=== PATIENT | female | born 1935 | race Caucasian/White ===

== ENCOUNTER → 2016-05-30 | Outpatient (CLI) | payer MEDICARE ==
--- NOTE | 2016-05-30 11:53 | REPMRS ---
Patient History The patient states she has not had a clinical breast exam in over a year. Patient is postmenopausal and has history of skin cancer at age 78. No known family history of cancer. Benign FNA biopsy. Digital Woman Screen Mammo: May 30, 2016 - Exam #: [id number] Bilateral CC and MLO view(s) were taken. Technologist: Daly Wheeler, Technologist Prior study comparison: May 29, 2015, digital woman screen mammo performed at [facility]. May 15, 2014, digital woman screen mammo performed at [facility]. FINDINGS: There are scattered fibroglandular densities. There has been no change in the appearance of the mammogram from the prior studies. There is a mild amount of residual fibroglandular tissue which is fairly symmetric. There is no interval development of dominant mass, architectural distortion, or clustered microcalcification suggestive of malignancy. ASSESSMENT: BI-RADS/ACR category 1 mammogram. Negative. Recommendation Routine screening mammogram in 1 year (for women over age 40). This mammogram was interpreted with the aid of an FDA-approved computer-aided dectection system. Electronically Signed By: Kai Chavez MD 05/30/16 [id number]
== END ==
LOC: M WHC 09:52
DX: Z12.31 Encounter for screening mammogram for malignant neoplasm of breast (principal)

== ENCOUNTER → 2016-11-26 | Outpatient (REF) | payer MEDICARE | LOC: M LAB REF 16:43 | PROVIDERS: ATTEND Nurse Practitioner Adult Health | DX: N39.0 Urinary tract infection, site not specified (principal) ==

== ENCOUNTER → 2016-12-12 | Outpatient (REF) | payer MEDICARE | LOC: M LAB REF 17:08 | PROVIDERS: ATTEND Nurse Practitioner Adult Health | DX: N76.6 Ulceration of vulva (principal) ==

== ENCOUNTER → 2017-07-16 | Outpatient (CLI) | payer MEDICARE | LOC: M WHC 12:42 | DX: Z12.31 Encounter for screening mammogram for malignant neoplasm of breast (principal); R92.1 Mammographic calcification found on diagnostic imaging of breast | CPT/HCPCS: 77067 ==

== ENCOUNTER → 2018-01-05 | Outpatient (CLI) | payer MEDICARE | LOC: M WHC 08:00 | DX: M85.80 Other specified disorders of bone density and structure, unspecified site (principal); Z78.0 Asymptomatic menopausal state | CPT/HCPCS: 77080 ==

== ENCOUNTER → 2018-07-19 | Outpatient (CLI) | payer MEDICARE ==
--- NOTE | 2018-07-19 09:19 | REPMRS ---
Patient History The patient states she has not had a clinical breast exam in over a year. 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 No known family history of cancer. Benign FNA biopsy. No Hormone Replacement Therapy 3D TOMOSYNTHESIS WAS PERFORMED. Digital Woman Screen Mammo: July 19, 2018 - Exam #: [id number] Bilateral CC and MLO view(s) were taken. Technologist: Daly Wheeler, Technologist Prior study comparison: July 16, 2017, digital woman screen mammo performed at [facility]. May 30, 2016, digital woman screen mammo performed at [facility]. FINDINGS: There are scattered fibroglandular densities. There has been no change in the appearance of the mammogram from the prior studies. There is a mild amount of residual fibroglandular tissue which is fairly symmetric. There is no interval development of dominant mass, architectural distortion, or clustered microcalcification suggestive of malignancy. Assessment: BI-RADS/ACR category 1 mammogram. Negative Mammogram. Recommendation Routine screening mammogram in 1 year (for women over age 40). This mammogram was interpreted with the aid of an FDA-approved computer-aided dectection system. Electronically Signed By: Kai Chavez MD 07/19/18 0918
== END ==
LOC: M WHC 07:43
PROVIDERS: ATTEND Internal Medicine
DX: Z12.31 Encounter for screening mammogram for malignant neoplasm of breast (principal); Z78.0 Asymptomatic menopausal state; Z85.828 Personal history of other malignant neoplasm of skin

== ENCOUNTER 2018-07-25 06:00 | Emergency (ER) | payer MEDICARE ==
[2018-07-25] MEDS ORDERED: PANT20TA2 (06:17)
[2018-07-25] MEDS ORDERED: CITR500T PO (06:17)
[2018-07-25] MEDS ORDERED: METF500T13 (06:17)
[2018-07-25] MEDS ORDERED: LOSA50TA88 (06:17)
[2018-07-25] MEDS ORDERED: SIMV40TA2 (06:17)
[2018-07-25] MEDS ORDERED: TAMSULOSIN 0.4 MG CAP PO ONE (06:30)
[2018-07-25] MEDS ORDERED: NS 1,000 ML IV ONE (06:30)
[2018-07-25] MEDS ORDERED: MORPHINE 4 MG/ML 1ML VIAL/SYRINGE (J2270) IV ONE (06:45)
--- NOTE | 2018-07-25 07:30 | REPVR ---
EXAM: CT Abdomen and Pelvis Without Contrast EXAM DATE/TIME: 07/25/2018 6:51 AM CLINICAL HISTORY: 82 years old, female; Abdominal pain; Generalized; Additional info: R colic TECHNIQUE: Imaging protocol: Axial computed tomography images of the abdomen and pelvis without contrast. Coronal and sagittal reformatted images were created and reviewed. Radiation optimization: All CT scans at this facility use at least one of these dose optimization techniques: automated exposure control; mA and/or kV adjustment per patient size (includes targeted exams where dose is matched to clinical indication); or iterative reconstruction. COMPARISON: No relevant prior studies available. FINDINGS: Lungs: There is mild nonspecific geographic ground glass opacity in the visualized lung bases. ABDOMEN: Liver: There are no focal liver lesions present. Gallbladder and bile ducts: The gallbladder is distended.There is no significant gallbladder wall thickening or adjacent inflammatory changes. There is no biliary ductal dilation. Pancreas: There is diffuse, benign fatty infiltration of the pancreas. Spleen: The spleen is normal. Adrenals: The adrenal glands are diffusely thickened but without discrete nodules. Kidneys and ureters: There is mild right hydronephrosis. There is a 5 x 5 x 8 m stone in the proximal right ureter. The right mid and distal ureter are not significantly dilated. There is right perinephric and periureteral stranding. The left ureter appears normal with no stones or hydronephrosis. There are nonobstructing 3-4 mm stones in the left kidney. Mild diffuse thinning of the bilateral renal parenchyma is seen, indicating atrophy. Stomach and bowel: Moderate diverticulosis is present in the colon, most prominent in the sigmoid and descending colon. There is no dilation or thickening of the colon. The small bowel appears unremarkable. Appendix: A normal appendix is identified. PELVIS: Bladder: The bladder is unremarkable. No stones identified. Reproductive: There are multiple calcifications in the uterus, consistent with degenerated benign fibroid tumors. ABDOMEN and PELVIS: Intraperitoneal space: There is no evidence of free intraperitoneal or pelvic fluid. There is no free intraperitoneal air. Bones/joints: Degenerative endplate changes are seen at multiple levels in the visualized spine. No suspicious osseous lesions. No acute fractures or dislocations. Soft tissues: Unremarkable. Vasculature: Atherosclerotic changes are present in the abdominal aorta and the iliac arteries. Lymph nodes: Normal. No enlarged lymph nodes. IMPRESSION: 1. Right-sided hydronephrosis and right perinephric and periureteral stranding with an obstructing 5 x 5 x 8 mm stone in the proximal right ureter. 2. Diverticulosis but no evidence of acute diverticulitis. Electronically signed by: Brina Jorge On 07/25/2018 07:29:41 AM
[2018-07-25 07:40] LABS: BASO % 0.3 % (0.0-1.0); EOS # 0.3 10^3/uL (0.0-0.50); EOS % 4.5 % (0.0-3.0); HEMATOCRIT 42.6 % (36.0-47.0); HEMOGLOBIN 14.2 g/dl (12.0-15.5); LYMPH # 1.1 10^3/uL (1.5-4.5); LYMPH % 16.7 % (24.0-44.0); MEAN CORPUSCULAR HEMOGLOBIN 31.4 pg (27.0-33.0); MEAN CORPUSCULAR HGB CONC 33.3 g/dl (32.0-36.5); MEAN CORPUSCULAR VOLUME 94.2 fl (80.0-96.0); MONO # 0.4 10^3/uL (0.0-0.8); MONO % 6.3 % (0.0-5.0); NEUTROPHILS # 4.8 10^3/uL (1.8-7.7); NEUTROPHILS % 71.7 % (36.0-66.0); PLATELET COUNT, AUTOMATED 135 10^3/uL (150-450); RED BLOOD COUNT 4.52 10^6/uL (4.00-5.40); WHITE BLOOD COUNT 6.7 10^3/uL (4.0-10.0)
[2018-07-25 08:10] LABS: ALBUMIN 3.6 GM/DL (3.2-5.2); BILIRUBIN,DIRECT 0.2 MG/DL (0.0-0.2); BILIRUBIN,TOTAL 0.8 MG/DL (0.2-1.0); CALCIUM LEVEL 9.1 MG/DL (8.8-10.2); CREATININE FOR GFR 1.06 MG/DL (0.55-1.30); GLOMERULAR FILTRATION RATE 53.1 (>32); TOTAL PROTEIN 7.3 GM/DL (6.4-8.2)
[2018-07-25] MEDS ORDERED: KETOROLAC 30 MG/ML VIAL (J1885) IV ONE (08:15)
[2018-07-25] MEDS ORDERED: KEFL500C17 PO (09:04)
[2018-07-25] MEDS ORDERED: NORC1TAB7 PO (09:04)
[2018-07-25] MEDS ORDERED: ONDA4TAB6 PO (09:04)
[2018-07-25 09:12] VITALS: BP 146/77
== END 2018-07-25 09:24 | disposition home or self-care (01) ==
LOC: M ED 06:00
DX: N20.1 Calculus of ureter (principal); N39.0 Urinary tract infection, site not specified; E11.9 Type 2 diabetes mellitus without complications; I10 Essential (primary) hypertension; E78.5 Hyperlipidemia, unspecified; K21.9 Gastro-esophageal reflux disease without esophagitis; Z79.899 Other long term (current) drug therapy; Z79.84 Long term (current) use of oral hypoglycemic drugs; Z91.013 Allergy to seafood; Z91.041 Radiographic dye allergy status

== ENCOUNTER → 2018-08-10 | Outpatient (CLI) | payer MEDICARE ==
[~2018-08-10] MED LIST: ASPI81TA85 PO; CITR500T PO; KEFL500C17 PO; LOSA50TA88 PO; METF500T13 PO; NITR100C2 PO; NORC1TAB7 PO; ONDA4TAB6 PO; PANT20TA2 PO; SIMV40TA2 PO; XARE15TA PO
--- NOTE | 2018-08-10 11:48 | REP ---
RIGHT LOWER EXTREMITY DUPLEX DOPPLER VENOUS ULTRASOUND: Real-time compression and duplex Doppler interrogation of right lower extremity deep vein system is performed. The right common femoral and superficial femoral veins are fully compressible with transducer pressure and demonstrate normal spontaneous and phasic flow without evidence of deep vein thrombosis. However, there is thrombosis diffusely of the right popliteal vein. IMPRESSION: Deep vein thrombosis right popliteal vein. Electronically Signed by Kai Chavez MD 08/11/2018 09:14 A
== END ==
LOC: M RAD 10:37
PROVIDERS: ATTEND Podiatrist
DX: I82.4Z1 Acute embolism and thrombosis of unspecified deep veins of right distal lower extremity (principal); R60.0 Localized edema

== ENCOUNTER → 2018-09-21 | Outpatient (CLI) | payer MEDICARE ==
[~2018-09-21] MED LIST changes: -SIMV40TA2 PO; +SIMV40TA20 PO
--- NOTE | 2018-09-21 09:28 | REP ---
Clinical: Hydronephrosis. Technique: Real time myers scale ultrasound examination using the curved array transducer. Findings: Bilateral kidneys are normal in reniform shape and demonstrate cortical thinning with increased central sinus fat suggesting chronic medical renal disease. No hydronephrosis, nephrolithiasis, or renal mass lesion identified. No perinephric fluid collection. Right kidney measures 11.8 x 5.8 x 3.8 cm and includes 11 mm lower pole simple cyst. Left kidney measures 10.9 x 4.2 x 4.6 cm. Impression: Findings to suggest chronic medical renal disease. A single 11 mm right lower pole simple renal cyst. Electronically Signed by Noman Steele MD 09/21/2018 09:19 A
== END ==
LOC: M RAD 08:21
PROVIDERS: ATTEND Urology
DX: N13.30 Unspecified hydronephrosis (principal); N28.1 Cyst of kidney, acquired

== ENCOUNTER → 2018-11-02 | Outpatient (REF) | payer MEDICARE ==
[~2018-11-02] MED LIST changes: +SIMV40TA2 PO; -SIMV40TA20 PO
== END ==
LOC: M LAB REF 17:13
PROVIDERS: ATTEND Internal Medicine
DX: R31.9 Hematuria, unspecified (principal)

== ENCOUNTER 2019-05-08 10:51 | Emergency (ER) | payer MEDICARE ==
[~2019-05-08] VITALS: Ht 152.4 cm; Wt 75.5 kg
[~2019-05-08 10:51] MED LIST changes: -SIMV40TA2 PO; +SIMV40TA20 PO
[2019-05-08 11:48] LABS: BASO % 0.6 % (0.0-1.0); EOS # 0.4 10^3/uL (0.0-0.5); EOS % 5.5 % (0.0-3.0); HEMATOCRIT 41.3 % (36.0-47.0); HEMOGLOBIN 13.4 g/dl (12.0-15.5); LYMPH # 1.4 10^3/uL (1.5-5.0); LYMPH % 21.2 % (24.0-44.0); MEAN CORPUSCULAR HEMOGLOBIN 30.9 pg (27.0-33.0); MEAN CORPUSCULAR HGB CONC 32.4 g/dl (32.0-36.5); MEAN CORPUSCULAR VOLUME 95.2 fl (80.0-96.0); MONO # 0.3 10^3/uL (0.0-0.8); MONO % 5.3 % (0.0-5.0); NEUTROPHILS # 4.3 10^3/uL (1.5-8.5); NEUTROPHILS % 66.9 % (36.0-66.0); PLATELET COUNT, AUTOMATED 147 10^3/uL (150-450); RED BLOOD COUNT 4.34 10^6/uL (4.00-5.40); WHITE BLOOD COUNT 6.4 10^3/uL (4.0-10.0)
[2019-05-08 12:13] LABS: INR 1.03; PROTHROMBIN TIME 13.2 SECONDS (11.8-14.0)
[2019-05-08 12:14] LABS: PARTIAL THROMBOPLASTIN TIME 26.8 SECONDS (25.0-38.4)
[2019-05-08 12:16] LABS: D-DIMER QUANT 919.64 ng/ml (<500)
--- NOTE | 2019-05-08 12:27 | REP ---
Clinical: Right lower extremity pain and erythema . Technique: Chavez scale and color Doppler evaluation using linear high frequency transducer. Findings: Ultrasound examination of the right lower extremity deep venous structures from the common femoral vein to the popliteal vein demonstrates normal compressibility flow and wave patterns in response to respiration and augmentation. There is no evidence for deep venous thrombosis. Impression: No evidence for deep venous thrombosis. Electronically Signed by Noman Steele MD 05/08/2019 12:18 P
--- NOTE | 2019-05-08 12:28 | REP ---
Clinical: Pain with swelling and erythema. Technique: Real time myers scale ultrasound examination using linear high frequency transducer. Findings: Directed ultrasound examination along the anterolateral right lower extremity at the site of maximal erythema demonstrates normal subcutaneous tissues without significant edema or fluid collection/abscess. Impression: No abnormal fluid collection or abscess. Electronically Signed by Noman Steele MD 05/08/2019 12:19 P
[2019-05-08 12:50] VITALS: BP 148/80
== END 2019-05-08 12:54 | disposition home or self-care (01) ==
LOC: M ED 10:51
DX: R22.41 Localized swelling, mass and lump, right lower limb (principal); E11.9 Type 2 diabetes mellitus without complications; I10 Essential (primary) hypertension; G47.30 Sleep apnea, unspecified; Z86.718 Personal history of other venous thrombosis and embolism; Z79.84 Long term (current) use of oral hypoglycemic drugs; Z79.899 Other long term (current) drug therapy

== ENCOUNTER → 2019-05-13 | Outpatient (CLI) | payer MEDICARE ==
--- NOTE | 2019-05-13 15:24 | REP ---
Duplex extremity venous ultrasound: Right lower extremity. History: Follow-up from prior study. Elevated D-dimer. Findings: The deep veins are anechoic and fully compressible from the groin to the popliteal fossa in the right lower extremity. Color flow imaging is homogeneous. Spectral Doppler interrogation demonstrates intact respiratory variation in flow and normal manual augmentation of flow. There is no evidence of deep vein thrombosis. Impression: Negative right lower extremity duplex venous ultrasound. No evidence of deep vein thrombosis. Electronically Signed by Brian Carter MD 05/13/2019 03:16 P
== END ==
LOC: M RAD 11:42
PROVIDERS: ATTEND Internal Medicine
DX: M79.604 Pain in right leg (principal)

== ENCOUNTER → 2019-12-14 | Outpatient (CLI) | payer MEDICARE ==
[~2019-12-14] MED LIST changes: -ASPI81TA85 PO; +ASPI81TA86 PO; +FLUT0.003; -PANT20TA2 PO; +PANT20TA6 PO
--- NOTE | 2019-12-14 10:53 | REPMRS ---
Patient History The patient states she has not had a clinical breast exam in over a year. No known family history of cancer. Benign FNA biopsy. No Hormone Replacement Therapy 3D TOMOSYNTHESIS WAS PERFORMED. [facility] lifetime risk for breast cancer is 1.1 %. LILIA Aguilera. Digital Woman Screen Mammo: December 14, 2019 - Exam #: [id number] Bilateral CC and MLO view(s) were taken. Technologist: Pauline Rosa, Technologist Prior study comparison: July 19, 2018, bilateral digital woman screen mammo performed at [facility]. July 16, 2017, digital woman screen mammo performed at [facility]. FINDINGS: There are scattered fibroglandular densities. There has been no change in the appearance of the mammogram from the prior studies. There is a mild amount of residual fibroglandular tissue which is fairly symmetric. There is no interval development of dominant mass, architectural distortion, or clustered microcalcification suggestive of malignancy. Assessment: BI-RADS/ACR category 1 mammogram. Negative Mammogram. Recommendation Routine screening mammogram in 1 year (for women over age 40). This mammogram was interpreted with the aid of an FDA-approved computer-aided dectection system. Electronically Signed By: Kai Chavez MD 12/14/19 7553
== END ==
LOC: M WHC 09:10
PROVIDERS: ATTEND Internal Medicine
DX: Z12.31 Encounter for screening mammogram for malignant neoplasm of breast (principal)

== ENCOUNTER 2020-01-12 14:16 | Emergency (ER) | payer MEDICARE ==
[~2020-01-12] VITALS: Ht 144.8 cm; Wt 73.6 kg
[~2020-01-12 14:16] MED LIST changes: -FLUT0.003
[2020-01-12] MEDS ORDERED: FLUT0.003 (14:36)
--- NOTE | 2020-01-12 15:24 | REPVR ---
PROCEDURE INFORMATION: Exam: CT Head Without Contrast Exam date and time: 01/12/2020 2:40 PM Age: 84 years old Clinical indication: Injury or trauma; Fall; Blunt trauma (contusions or hematomas) TECHNIQUE: Imaging protocol: Computed tomography of the head without contrast. Radiation optimization: All CT scans at this facility use at least one of these dose optimization techniques: automated exposure control; mA and/or kV adjustment per patient size (includes targeted exams where dose is matched to clinical indication); or iterative reconstruction. COMPARISON: No relevant prior studies available. FINDINGS: Brain: Moderate hypoattenuating foci are noted in the central cerebral, posterior superior periatrial and anterior lateral ventricular periventricular white matter bilaterally. No intracranial hemorrhage. No mass or acute cortical infarction identified. Cerebral ventricles: Prominence of the ventricular system and subarachnoid spaces is consistent with the patient's age of 84 years. Bones/joints: Unremarkable. No acute fracture. Paranasal sinuses: Moderate left maxillary sinus mucosal thickening, mild dependent fluid/mucous, mild chronic bony wall thickening. Mastoid air cells: Visualized mastoid air cells are well aerated. Orbital cavity: Bilateral prior cataract surgery. Vasculature: Atherosclerotic calcifications are present involving the basilar artery, and the carotid artery siphons and vertebral arteries bilaterally. Soft tissues: Right frontal subcutaneous hematoma is present measuring 10 mm in thickness. IMPRESSION: 1. Subcutaneous hematoma. 2. Age appropriate supratentorial and infratentorial atrophy. 3. Moderate chronic white matter microvascular ischemic disease. 4. No acute intracranial injury identified. 5. Incidental paranasal sinus disease as above. Electronically signed by: Tee Moreira On 01/12/2020 15:24:46 PM
--- NOTE | 2020-01-12 15:33 | REPVR ---
PROCEDURE INFORMATION: Exam: CT Thoracic Spine Without Contrast Exam date and time: 01/12/2020 2:40 PM Age: 84 years old Clinical indication: Injury or trauma; Fall; Blunt trauma (contusions or hematomas) TECHNIQUE: Imaging protocol: Computed tomography images of the thoracic spine without contrast. Radiation optimization: All CT scans at this facility use at least one of these dose optimization techniques: automated exposure control; mA and/or kV adjustment per patient size (includes targeted exams where dose is matched to clinical indication); or iterative reconstruction. COMPARISON: No relevant prior studies available. FINDINGS: Vertebrae: Spondylosis is seen throughout the thoracic spine with bridging osteophytes as well as fusion and near fusion of the mid through lower thoracic spinous processes posteriorly. No definite acute fracture is seen through the bridging osteophytes nor is there compression fracture in the thoracic spine. Bones are osteopenic. Discs/Spinal canal/Neural foramina: No significant spinal canal stenosis or neural foraminal narrowing. Soft tissues: Unremarkable. Lungs: No pneumothorax or pleural effusion. IMPRESSION: No acute fracture is seen in the thoracic spine. Electronically signed by: Sariah Newman On 01/12/2020 15:33:46 PM
--- NOTE | 2020-01-12 15:33 | REPVR ---
PROCEDURE INFORMATION: Exam: CT Cervical Spine Without Contrast Exam date and time: 01/12/2020 2:40 PM Age: 84 years old Clinical indication: Injury or trauma; Fall; Blunt trauma TECHNIQUE: Imaging protocol: Computed tomography images of the cervical spine without contrast. Radiation optimization: All CT scans at this facility use at least one of these dose optimization techniques: automated exposure control; mA and/or kV adjustment per patient size (includes targeted exams where dose is matched to clinical indication); or iterative reconstruction. COMPARISON: No relevant prior studies available. FINDINGS: Bones/joints: Diffuse osteopenia. Discs/Spinal canal/Neural foramina: Moderate atlantodental osteoarthritis. Moderate left C3-C4 primary facet osteoarthritis. Moderate bilateral neural foraminal narrowing. Severe right C4-C5 and C5-C6 neural foraminal narrowing. Soft tissues: Unremarkable. Trachea: Mild C5-6 and C6-7 degenerative disc disease with mild spondylosis. Lungs: Lung apices are normal. IMPRESSION: 1. Degenerative changes as above. 2. No acute cervical spinal bony injury identified. Electronically signed by: Tee Moreira On 01/12/2020 15:33:39 PM
--- NOTE | 2020-01-12 16:28 | REPVR ---
PROCEDURE INFORMATION: Exam: XR Left Knee Exam date and time: 01/12/2020 2:40 PM Age: 84 years old Clinical indication: Pain; Knee; Left; Additional info: Trauma TECHNIQUE: Imaging protocol: XR Left knee. Views: Frontal, lateral, and 2 oblique views. COMPARISON: CR Knee, complete 01/23/2017 4:18 PM FINDINGS: Bones/joints: Mild medial compartment predominate narrowing. No acute bony abnormality identified. Soft tissues: Anteromedial soft tissue swelling new. Vasculature: Vascular calcifications are present. IMPRESSION: 1. Medial compartment chondromalacia or meniscal degeneration. 2. No acute bony injury identified. Electronically signed by: Tee Moreira On 01/12/2020 16:28:05 PM
--- NOTE | 2020-01-12 16:29 | REPVR ---
PROCEDURE INFORMATION: Exam: XR Left Wrist Exam date and time: 01/12/2020 2:40 PM Age: 84 years old Clinical indication: Pain; Wrist; Left; Additional info: Trauma TECHNIQUE: Imaging protocol: XR Left wrist. Views: Frontal, lateral, and 2 oblique views. COMPARISON: No relevant prior studies available. FINDINGS: Bones/joints: No acute bony abnormality identified. Soft tissues: Normal. Vasculature: Vascular calcifications are present. IMPRESSION: No acute bony injury identified. Electronically signed by: Tee Moreira On 01/12/2020 16:29:05 PM
[2020-01-12 16:59] VITALS: BP 167/97
== END 2020-01-12 17:25 | disposition home or self-care (01) ==
LOC: M ED 14:16 → EDBD 14:16 → M ED 17:25
DX: S09.90XA Unspecified injury of head, initial encounter (principal); S60.212A Contusion of left wrist, initial encounter; S80.02XA Contusion of left knee, initial encounter; W01.10XA Fall on same level from slipping, tripping and stumbling with subsequent striking against unspecified object, initial encounter; Y92.019 Unspecified place in single-family (private) house as the place of occurrence of the external cause; Y93.9 Activity, unspecified; M50.222 Other cervical disc displacement at C5-C6 level; M50.223 Other cervical disc displacement at C6-C7 level; M94.262 Chondromalacia, left knee; M47.814 Spondylosis without myelopathy or radiculopathy, thoracic region; E11.9 Type 2 diabetes mellitus without complications; J34.89 Other specified disorders of nose and nasal sinuses; I67.82 Cerebral ischemia; E78.5 Hyperlipidemia, unspecified; M19.90 Unspecified osteoarthritis, unspecified site; M81.0 Age-related osteoporosis without current pathological fracture; Z79.899 Other long term (current) drug therapy

== ENCOUNTER 2020-01-15 09:46 | Emergency (ER) | payer MEDICARE ==
[~2020-01-15] VITALS: Ht 152.4 cm; Wt 73.6 kg
[~2020-01-15 09:46] MED LIST changes: +FLUT0.003
--- NOTE | 2020-01-15 10:33 | REP ---
INDICATION: trauma, right middle lateral rib pain COMPARISON: None. TECHNIQUE: Frontal view of the chest with multiple (4) views of the right hemithorax. FINDINGS: Frontal view of the chest demonstrates no acute cardiopulmonary process, contusion, effusion, or pneumothorax. Multiple views of the right hemithorax demonstrates no acute rib fracture/injury or pathology. IMPRESSION: No obvious acute rib fracture identified. <Electronically signed by Noman Steele > 01/15/20 102
[2020-01-15 11:25] VITALS: BP 119/73
== END 2020-01-15 12:02 | disposition home or self-care (01) ==
LOC: M ED 09:46
DX: S23.41XD Sprain of ribs, subsequent encounter (principal); S00.03XD Contusion of scalp, subsequent encounter; S00.83XD Contusion of other part of head, subsequent encounter; W01.10XD Fall on same level from slipping, tripping and stumbling with subsequent striking against unspecified object, subsequent encounter; Y92.019 Unspecified place in single-family (private) house as the place of occurrence of the external cause; Y93.9 Activity, unspecified; E11.9 Type 2 diabetes mellitus without complications; E78.5 Hyperlipidemia, unspecified; Z79.899 Other long term (current) drug therapy

== ENCOUNTER 2020-02-23 15:45 | Emergency (ER) | payer MEDICARE ==
[~2020-02-23] VITALS: Ht 152.4 cm; Wt 74.0 kg
[2020-02-23] MEDS ORDERED: ASPI81CH33 PO (15:58)
[2020-02-23] MEDS ORDERED: diphenhydrAMINE CREAM 30GM TOP STA (16:27)
[2020-02-23 17:07] LABS: BASO % 0.4 % (0.0-1.0); EOS # 0.3 10^3/uL (0.0-0.5); HEMATOCRIT 44.1 % (36.0-47.0); LYMPH # 1.5 10^3/uL (1.5-5.0); LYMPH % 15.1 % (24.0-44.0); MEAN CORPUSCULAR HEMOGLOBIN 30.1 pg (27.0-33.0); MEAN CORPUSCULAR HGB CONC 31.7 g/dl (32.0-36.5); MEAN CORPUSCULAR VOLUME 94.8 fl (80.0-96.0); MONO # 0.6 10^3/uL (0.0-0.8); MONO % 5.7 % (0.0-5.0); NEUTROPHILS # 7.6 10^3/uL (1.5-8.5); NEUTROPHILS % 75.4 % (36.0-66.0); PLATELET COUNT, AUTOMATED 168 10^3/uL (150-450); RED BLOOD COUNT 4.65 10^6/uL (4.00-5.40)
--- NOTE | 2020-02-23 17:32 | REPVR ---
PROCEDURE INFORMATION: Exam: US Duplex Right Lower Extremity Veins, Limited Exam date and time: 02/23/2020 4:27 PM Age: 84 years old Clinical indication: Pain; Leg, lower; Right; Additional info: Lower leg warmth, swelling TECHNIQUE: Imaging protocol: Real-time Duplex ultrasound of the Right Lower Extremity with 2-D myers scale, color Doppler flow and spectral waveform analysis with image documentation. Limited exam was focused on the right lower extremity veins. COMPARISON: US Duplex, Ext,LOWER veins,unilat 05/13/2019 11:56 AM FINDINGS: Right deep veins: Incompletely occlusive medium level echogenicity in the mid popliteal vein with partial compressibility, preserved peripheral flow, and blighted augmentation response knee: This appears to be extending into the proximal posterior tibial vein. The common femoral, femoral, proximal profunda femoral veins are patent without thrombus with Doppler waveforms and compressibility/augmentation response. Right superficial veins: Unremarkable. Saphenofemoral junction is patent without thrombus. Soft tissues: Unremarkable. IMPRESSION: Nonocclusive acute venous thrombosis right popliteal vein. Electronically signed by: Tee Moreira On 02/23/2020 17:32:21 PM
[2020-02-23 17:34] LABS: ERYTHROCYTE SEDIMENTATION RATE 12 mm/hr (0-30)
[2020-02-23] MEDS ORDERED: XARE15TA PO (17:57)
[2020-02-23] MEDS ORDERED: RIVAROXABAN 15 MG TAB (XARELTO) PO ONE (18:00)
[2020-02-23 18:08] VITALS: BP 146/92
== END 2020-02-23 18:39 | disposition home or self-care (01) ==
LOC: M ED 15:45
DX: I82.431 Acute embolism and thrombosis of right popliteal vein (principal); E11.9 Type 2 diabetes mellitus without complications; I10 Essential (primary) hypertension; E78.5 Hyperlipidemia, unspecified; K21.9 Gastro-esophageal reflux disease without esophagitis; G47.33 Obstructive sleep apnea (adult) (pediatric); Z79.82 Long term (current) use of aspirin; Z79.84 Long term (current) use of oral hypoglycemic drugs; Z79.899 Other long term (current) drug therapy

== ENCOUNTER → 2020-02-28 | Outpatient (REF) | payer MEDICARE ==
[~2020-02-28] MED LIST changes: +ASPI81CH33 PO
[2020-02-28 18:17] LABS: APPEARANCE, URINE MANUAL TURBID (CLEAR); COLOR, URINE MANUAL BROWN (YELLOW)
[2020-02-28 18:19] LABS: GLUCOSE, URINE (UA) MANUAL NEGATIVE (NEGATIVE); KETONE, URINE MANUAL 1+ mg/dL (NEGATIVE); PROTEIN, URINE MANUAL 3+ mg/dL (NEGATIVE)
[2020-02-28 18:20] LABS: BLOOD URINE MANUAL POSITIVE (NEGATIVE); LEUKOCYTE ESTERASE, URINE MAN POSITIVE (NEGATIVE); NITRITE, URINE MANUAL POSITIVE (NEGATIVE)
[2020-02-28 18:27] LABS: SPECIFIC GRAVITY,URINE MANUAL 1.025 (1.002-1.035)
[2020-02-28 18:28] LABS: BILIRUBIN, URINE MANUAL OBSCURED (NEGATIVE); UROBILINOGEN, URINE MANUAL NORMAL (NORMAL)
[2020-02-28 18:30] LABS: BACTERIA, URINE LARGE AMOUNT; RBC, URINE TNTC /hpf (0-3); SQUAMOUS EPITHELIAL CELL URINE SMALL AMOUNT /hpf (SMALL AMT); TRANSITIONAL EPI CELLS, URINE SMALL AMOUNT /hpf; WBC, URINE TNTC /hpf (0-3)
[2020-02-28 18:33] LABS: HYALINE CAST, URINE NONE SEEN /lpf (0-1); MUCUS, URINE SMALL AMOUNT (NEGATIVE); RENAL EPITHELIAL CELLS, URINE SMALL AMOUNT /hpf
== END ==
LOC: M LAB REF 16:25
PROVIDERS: ATTEND Family Medicine
DX: R31.9 Hematuria, unspecified (principal)

== ENCOUNTER → 2020-03-14 | Outpatient (REF) | payer MEDICARE | LOC: M LAB REF 16:20 | PROVIDERS: ATTEND Physician Assistant Medical | DX: R31.9 Hematuria, unspecified (principal) ==

== ENCOUNTER 2020-03-15 15:13 | Emergency (ER) | payer MEDICARE ==
[~2020-03-15] VITALS: Ht 152.4 cm; Wt 76.8 kg
--- NOTE | 2020-03-15 15:33 | REP ---
INDICATION: trauma COMPARISON: 01/12/2020 TECHNIQUE: Axial noncontrast images from the skull base to the thoracic inlet with coronal reformations. This CT examination was performed using the following dose reduction techniques: Automated exposure control, adjustment of mA and/or kv according to the patient's size, and use of iterative reconstruction technique. FINDINGS: Examination is limited by motion artifact primarily involving the posterior fossa and occipital lobe. There is a large scalp hematoma overlying the left frontal bone. No underlying calvarial fracture identified. Atrophy with microvascular ischemic changes and periventricular leukomalacia noted. Chavez-white differentiation is relatively maintained. No acute intracranial hemorrhage, mass or mass effect. No extra-axial fluid collection. IMPRESSION: 1. Large scalp hematoma overlies the left frontal bone. 2. Atrophy and microvascular ischemic changes. 3. No evidence for intracranial trauma/injury. <Electronically signed by Noman Steele > 03/15/20 [id number]
--- NOTE | 2020-03-15 15:35 | REP ---
INDICATION: trauma COMPARISON: 01/12/2020 TECHNIQUE: Axial noncontrast images from the skull base to the thoracic inlet with coronal and sagittal re-formations This CT examination was performed using the following dose reduction techniques: Automated exposure control, adjustment of mA and/or kv according to the patient's size, and use of iterative reconstruction technique. FINDINGS: Osteopenia and advanced multilevel degenerative changes are appreciated. Alignment and lordosis maintained. No acute fracture/compression injury or subluxation. Spinal canal is patent. Posterior elements and spinous processes are intact. Paravertebral soft tissues are normal. IMPRESSION: Advanced osteopenia and multilevel degenerative spondylosis. No evidence for acute fracture/compression injury or subluxation. <Electronically signed by Noman Steele > 03/15/20 [id number]
[2020-03-15] MEDS ORDERED: BOOSTRIX/ADACEL VACCINE (DIPHTH/PERTUSS/ACELL/TETANUS) 0.5ML SYR IM ONE (16:00)
[2020-03-15] MEDS ORDERED: ACETAMINOPHEN TAB 650MG DOSE (2X325MG) PO ONE (16:00)
[2020-03-15 16:44] LABS: BASO % 0.4 % (0.0-1.0); EOS # 0.2 10^3/uL (0.0-0.5); EOS % 2.6 % (0.0-3.0); HEMATOCRIT 41.3 % (36.0-47.0); HEMOGLOBIN 13.2 g/dl (12.0-15.5); LYMPH # 1.1 10^3/uL (1.5-5.0); LYMPH % 14.5 % (24.0-44.0); MEAN CORPUSCULAR HEMOGLOBIN 30.2 pg (27.0-33.0); MEAN CORPUSCULAR VOLUME 94.5 fl (80.0-96.0); MONO # 0.4 10^3/uL (0.0-0.8); MONO % 5.3 % (0.0-5.0); NEUTROPHILS # 5.8 10^3/uL (1.5-8.5); NEUTROPHILS % 76.7 % (36.0-66.0); PLATELET COUNT, AUTOMATED 167 10^3/uL (150-450); RED BLOOD COUNT 4.37 10^6/uL (4.00-5.40); WHITE BLOOD COUNT 7.6 10^3/uL (4.0-10.0)
[2020-03-15 16:54] LABS: INR 1.83; PROTHROMBIN TIME 21.6 SECONDS (12.5-14.3)
[2020-03-15 16:55] LABS: PARTIAL THROMBOPLASTIN TIME 36.2 SECONDS (24.2-38.5)
--- NOTE | 2020-03-15 17:03 | REP ---
INDICATION: fall COMPARISON: 10/22/2006 TECHNIQUE: AP and cross-table lateral FINDINGS: The mediastinum and cardiac silhouette are normal. The lung rhodes demonstrate chronic appearing changes without acute consolidation, effusion, or pneumothorax. The skeletal structures are intact and normal. IMPRESSION: No acute consolidation or effusion. <Electronically signed by Noman Steele > 03/15/20 [id number]
[2020-03-15 17:10] LABS: BLOOD UREA NITROGEN 21 MG/DL (7-18); CALCIUM LEVEL 9.8 MG/DL (8.8-10.2); CARBON DIOXIDE LEVEL 26 MEQ/L (21-32); CHLORIDE LEVEL 109 MEQ/L (98-107); CK-MB VALUE MASS 1.4 NG/ML (<3.6); CPK CREATINE PHOSPHOKINASE 45 U/L (26-192); CREATININE FOR GFR 1.19 MG/DL (0.55-1.30); GLOMERULAR FILTRATION RATE 46.2 (>32); GLUCOSE, FASTING 118 MG/DL (70-100); MB/CK RELATIVE INDEX 3.11 (< OR =4); POTASSIUM SERUM 4.1 MEQ/L (3.5-5.1); SODIUM LEVEL 140 MEQ/L (136-145); TROPONIN I < 0.02 NG/ML (< 0.10)
[2020-03-15 17:30] VITALS: BP 156/73
--- NOTE | 2020-03-16 07:41 | ECGEPIP ---
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
== END 2020-03-15 20:00 | disposition home or self-care (01) ==
LOC: M ED 15:13
DX: S00.83XA Contusion of other part of head, initial encounter (principal); W01.10XA Fall on same level from slipping, tripping and stumbling with subsequent striking against unspecified object, initial encounter; Y92.9 Unspecified place or not applicable; Y93.9 Activity, unspecified; Y99.9 Unspecified external cause status; I67.2 Cerebral atherosclerosis; M85.88 Other specified disorders of bone density and structure, other site; M47.812 Spondylosis without myelopathy or radiculopathy, cervical region; E11.9 Type 2 diabetes mellitus without complications; I12.9 Hypertensive chronic kidney disease with stage 1 through stage 4 chronic kidney disease, or unspecified chronic kidney disease; E78.5 Hyperlipidemia, unspecified; M19.90 Unspecified osteoarthritis, unspecified site; M81.8 Other osteoporosis without current pathological fracture; Z79.01 Long term (current) use of anticoagulants; Z79.84 Long term (current) use of oral hypoglycemic drugs; Z79.899 Other long term (current) drug therapy; Z91.041 Radiographic dye allergy status

== ENCOUNTER → 2020-03-28 | Outpatient (REF) | payer MEDICARE | LOC: M LAB REF 16:24 | PROVIDERS: ATTEND Physician Assistant Medical | DX: R31.9 Hematuria, unspecified (principal) ==

== ENCOUNTER → 2020-04-10 | Outpatient (REF) | payer MEDICARE | LOC: M LAB REF 17:23 | PROVIDERS: ATTEND Physician Assistant Medical | DX: R31.9 Hematuria, unspecified (principal) ==

== ENCOUNTER → 2020-04-17 | Outpatient (REF) | payer MEDICARE | LOC: M LAB REF 13:00 | PROVIDERS: ATTEND Physician Assistant Medical | DX: R31.9 Hematuria, unspecified (principal) ==

== ENCOUNTER → 2020-07-11 | Outpatient (CLI) | payer MEDICARE ==
--- NOTE | 2020-07-11 14:50 | REP ---
INDICATION: LT UPJ STONE W/ HYDRONEPHROSIS COMPARISON: 09/21/2018 TECHNIQUE: Real time myers scale ultrasound examination using curved array transducer. FINDINGS: Kidneys are normal in reniform shape and demonstrate increased central sinus fat with cortical thinning consistent with chronic medical renal disease. No hydronephrosis or nephrolithiasis appreciated. Right kidney measures 11.3 x 4.7 x 4.2 cm with 10 mm lower pole cyst. Left kidney measures 10.5 x 5.0 x 4.1 cm with 9 mm upper pole cyst. IMPRESSION: Chronic medical renal disease and solitary bilateral cysts. No hydronephrosis or nephrolithiasis. <Electronically signed by Noman Steele > 07/11/20 [id number]
--- NOTE | 2020-07-11 14:51 | REP ---
INDICATION: LT UPJ STONE W/ HYDRONEPHROSIS COMPARISON: None TECHNIQUE: Real time B-mode ultrasound examination using curved array transducer. FINDINGS: Bladder is normal in appearance without wall thickening or mass lesion. Bilateral ureteral jets are identified. Prevoid bladder measures 7.8 x 7.3 x 5.5 cm (205 cc). Postvoid bladder measures 3.8 x 4.8 x 2.7 cm (32 cc). Postvoid residual: 16 % IMPRESSION: 1. Normal bladder ultrasound. <Electronically signed by Noman Steele > 07/11/20 2038
== END ==
LOC: M RAD 13:49
PROVIDERS: ATTEND Internal Medicine
DX: N20.1 Calculus of ureter (principal)

== ENCOUNTER → 2020-08-02 | Outpatient (REF) | payer MEDICARE | LOC: M LAB REF 16:04 | PROVIDERS: ATTEND Internal Medicine | DX: D51.9 Vitamin B12 deficiency anemia, unspecified (principal) ==

== ENCOUNTER → 2021-03-08 | Outpatient (CLI) | payer MEDICARE ==
[~2021-03-08] MED LIST changes: +LORA-674; +LOSA50TA28 PO; -LOSA50TA88 PO
== END ==
LOC: M WHC 14:05
PROVIDERS: ATTEND Internal Medicine
DX: Z12.31 Encounter for screening mammogram for malignant neoplasm of breast (principal)

== ENCOUNTER 2021-04-18 15:13 | Emergency (ER) | payer MEDICARE ==
[~2021-04-18 15:13] MED LIST changes: -LORA-674
[2021-04-18 15:33] VITALS: BP 144/74
[2021-04-18] MEDS ORDERED: LORA-674 (15:39)
[2021-04-18] MEDS ORDERED: DERMABOND TOPICAL SKIN ADHESIVE TOP ONE (18:35)
== END 2021-04-18 19:49 | disposition home or self-care (01) ==
LOC: M ED 15:13
DX: S01.01XA Laceration without foreign body of scalp, initial encounter (principal); W01.190A Fall on same level from slipping, tripping and stumbling with subsequent striking against furniture, initial encounter; Z91.013 Allergy to seafood; Z91.048 Other nonmedicinal substance allergy status; Z87.442 Personal history of urinary calculi; Y92.009 Unspecified place in unspecified non-institutional (private) residence as the place of occurrence of the external cause; Y93.9 Activity, unspecified; Y99.9 Unspecified external cause status

== ENCOUNTER 2021-12-01 07:42 | Emergency (ER) | payer MEDICARE ==
[~2021-12-01] VITALS: Ht 152.4 cm; Wt 72.7 kg
[~2021-12-01 07:42] MED LIST changes: +LORA-674
[2021-12-01] MEDS ORDERED: NYST-13 (07:58)
[2021-12-01] MEDS ORDERED: SYST1SOL4 OP (08:01)
[2021-12-01 09:17] VITALS: BP 154/81
== END 2021-12-01 09:25 | disposition home or self-care (01) ==
LOC: M ED 07:42
DX: M25.561 Pain in right knee (principal); E11.9 Type 2 diabetes mellitus without complications; I10 Essential (primary) hypertension; E78.5 Hyperlipidemia, unspecified; K21.9 Gastro-esophageal reflux disease without esophagitis; Z87.442 Personal history of urinary calculi; Z91.041 Radiographic dye allergy status; Z91.013 Allergy to seafood; R22.41 Localized swelling, mass and lump, right lower limb; Z79.4 Long term (current) use of insulin; Z79.899 Other long term (current) drug therapy

== ENCOUNTER → 2022-03-11 | Outpatient (CLI) | payer MEDICARE ==
[~2022-03-11] MED LIST changes: +NYST-13; +SYST1SOL4 OP
== END ==
LOC: M WHC 11:12
PROVIDERS: ATTEND Internal Medicine
DX: Z12.31 Encounter for screening mammogram for malignant neoplasm of breast (principal)

== ENCOUNTER 2022-03-21 06:57 | Emergency (ER) | payer MEDICARE ==
[~2022-03-21] VITALS: Ht 142.2 cm; Wt 72.7 kg
[2022-03-21] MEDS ORDERED: diphenhydrAMINE CREAM 30GM TOP PRN (17:00)
[2022-03-21] MEDS ORDERED: diphenhydrAMINE 25MG CAP PO ONE (17:00)
[2022-03-21 18:05] LABS: BASO # 0.1 10^3/uL (0.0-0.2); BASO % 0.8 % (0.0-1.0); EOS # 0.5 10^3/uL (0.0-0.5); EOS % 6.7 % (0.0-3.0); HEMATOCRIT 43.6 % (36.0-47.0); HEMOGLOBIN 14.3 g/dl (12.0-15.5); LYMPH # 1.7 10^3/uL (1.5-5.0); LYMPH % 21.8 % (24.0-44.0); MEAN CORPUSCULAR HEMOGLOBIN 32.2 pg (27.0-33.0); MEAN CORPUSCULAR HGB CONC 32.8 g/dl (32.0-36.5); MEAN CORPUSCULAR VOLUME 98.2 fl (80.0-96.0); MONO # 0.5 10^3/uL (0.0-0.8); MONO % 6.6 % (2.0-8.0); NEUTROPHILS # 4.9 10^3/uL (1.5-8.5); NEUTROPHILS % 63.6 % (36.0-66.0); PLATELET COUNT, AUTOMATED 144 10^3/uL (150-450); RED BLOOD COUNT 4.44 10^6/uL (4.00-5.40); WHITE BLOOD COUNT 7.6 10^3/uL (4.0-10.0)
[2022-03-21 18:18] LABS: ERYTHROCYTE SEDIMENTATION RATE 42 mm/hr (0-30)
[2022-03-21 18:25] LABS: C REACTIVE PROTEIN QUANTITATIV < 0.40 MG/DL (<1.0)
[2022-03-21 18:26] LABS: ALBUMIN 3.6 G/DL (3.2-5.2); ALKALINE PHOSPHATASE 68 U/L (46-116); ALT/SGPT 10 U/L (7.0-40); AST/SGOT 21 U/L (<34); BILIRUBIN,TOTAL 0.8 MG/DL (0.3-1.2); TOTAL PROTEIN 6.9 G/DL (5.7-8.2)
[2022-03-21 18:27] LABS: BILIRUBIN,DIRECT 0.2 MG/DL (<0.4)
[2022-03-21] MEDS ORDERED: DOXY-444 PO (19:09)
[2022-03-21 19:28] VITALS: BP 133/82
== END 2022-03-21 19:43 | disposition home or self-care (01) ==
LOC: M ED 06:57
DX: L03.113 Cellulitis of right upper limb (principal); M79.662 Pain in left lower leg; R21 Rash and other nonspecific skin eruption; R70.0 Elevated erythrocyte sedimentation rate; R22.43 Localized swelling, mass and lump, lower limb, bilateral; K21.9 Gastro-esophageal reflux disease without esophagitis; I10 Essential (primary) hypertension; E11.9 Type 2 diabetes mellitus without complications; G47.33 Obstructive sleep apnea (adult) (pediatric); Z91.041 Radiographic dye allergy status; Z91.013 Allergy to seafood; Z79.82 Long term (current) use of aspirin; Z79.4 Long term (current) use of insulin; Z79.899 Other long term (current) drug therapy

== ENCOUNTER → 2022-04-03 | Outpatient (CLI) | payer MEDICARE ==
[~2022-04-03] MED LIST changes: +DOXY-444 PO
== END ==
LOC: M SOG 08:51
PROVIDERS: ATTEND Orthopaedic Surgery Adult Reconstructive Orthopaedic Surgery
DX: M25.561 Pain in right knee (principal)

== ENCOUNTER 2022-04-22 23:03 | Emergency (ER) | payer MEDICARE ==
[~2022-04-22] VITALS: Ht 152.4 cm; Wt 72.7 kg
[2022-04-23 03:41] LABS: BASO # 0.1 10^3/uL (0.0-0.2); BASO % 0.6 % (0.0-1.0); EOS # 0.6 10^3/uL (0.0-0.5); EOS % 6.9 % (0.0-3.0); HEMATOCRIT 46.1 % (36.0-47.0); HEMOGLOBIN 14.8 g/dl (12.0-15.5); LYMPH # 2.1 10^3/uL (1.5-5.0); LYMPH % 23.6 % (24.0-44.0); MEAN CORPUSCULAR HEMOGLOBIN 31.6 pg (27.0-33.0); MEAN CORPUSCULAR HGB CONC 32.1 g/dl (32.0-36.5); MEAN CORPUSCULAR VOLUME 98.5 fl (80.0-96.0); MONO # 0.5 10^3/uL (0.0-0.8); MONO % 5.5 % (2.0-8.0); NEUTROPHILS # 5.5 10^3/uL (1.5-8.5); NEUTROPHILS % 62.7 % (36.0-66.0); PLATELET COUNT, AUTOMATED 165 10^3/uL (150-450); RED BLOOD COUNT 4.68 10^6/uL (4.00-5.40); WHITE BLOOD COUNT 8.7 10^3/uL (4.0-10.0)
[2022-04-23 03:50] LABS: C REACTIVE PROTEIN QUANTITATIV < 0.40 MG/DL (<1.0)
[2022-04-23 03:51] LABS: BLOOD UREA NITROGEN 27 MG/DL (9-23); CALCIUM LEVEL 9.2 MG/DL (8.3-10.6); CARBON DIOXIDE LEVEL 29 MMOL/L (20-31); CHLORIDE LEVEL 107 MMOL/L (98-107); CREATININE FOR GFR 1.14 MG/DL (0.55-1.30); GLOMERULAR FILTRATION RATE 48.3 (>32); GLUCOSE, FASTING 141 MG/DL (74-106); POTASSIUM SERUM 4.5 MMOL/L (3.5-5.1); SODIUM LEVEL 141 MMOL/L (136-145)
[2022-04-23 03:53] LABS: ERYTHROCYTE SEDIMENTATION RATE 52 mm/hr (0-30)
[2022-04-23] MEDS ORDERED: FUROSEMIDE 20MG/2ML VIAL IV ONE (09:10)
[2022-04-23 11:05] LABS: APPEARANCE, URINE MANUAL CLEAR (CLEAR); COLOR, URINE MANUAL YELLOW (YELLOW)
[2022-04-23 11:06] LABS: BILIRUBIN, URINE MANUAL NEGATIVE (NEGATIVE); BLOOD URINE MANUAL POSITIVE (NEGATIVE); GLUCOSE, URINE (UA) MANUAL NEGATIVE (NEGATIVE); KETONE, URINE MANUAL NEGATIVE (NEGATIVE); LEUKOCYTE ESTERASE, URINE MAN POSITIVE (NEGATIVE); NITRITE, URINE MANUAL NEGATIVE (NEGATIVE); PROTEIN, URINE MANUAL TRACE mg/dL (NEGATIVE); UROBILINOGEN, URINE MANUAL NORMAL (NORMAL)
[2022-04-23 11:39] LABS: RBC, URINE 40-50 /hpf (0-3)
[2022-04-23 11:40] LABS: AMORPHOUS SEDIMENT, URINE SMALL AMOUNT (NEGATIVE); BACTERIA, URINE SMALL AMOUNT; HYALINE CAST, URINE NONE SEEN /lpf (0-1); MUCUS, URINE SMALL AMOUNT (NEGATIVE); SQUAMOUS EPITHELIAL CELL URINE SMALL AMOUNT /hpf (SMALL AMT)
[2022-04-23 12:08] VITALS: BP 128/76
[2022-04-23] MEDS ORDERED: FURO20TA2 PO (12:20)
== END 2022-04-23 12:56 | disposition home or self-care (01) ==
LOC: M ED 04-23 08:42
DX: R22.43 Localized swelling, mass and lump, lower limb, bilateral (principal); E11.9 Type 2 diabetes mellitus without complications; I10 Essential (primary) hypertension; E78.5 Hyperlipidemia, unspecified; K21.9 Gastro-esophageal reflux disease without esophagitis; N18.30 Chronic kidney disease, stage 3 unspecified; Z91.013 Allergy to seafood; Z91.041 Radiographic dye allergy status; Z79.82 Long term (current) use of aspirin; Z79.4 Long term (current) use of insulin; Z79.811 Long term (current) use of aromatase inhibitors; Z79.899 Other long term (current) drug therapy
CPT/HCPCS: 71045; 80048; 81000; 83880; 85025; 85652; 86140; 93970; 96374; 99284; J1940

== ENCOUNTER → 2022-08-12 | Outpatient (CLI) | payer MEDICARE ==
[~2022-08-12] MED LIST changes: +FURO20TA2 PO
== END ==
LOC: M PLAIMG 10:24
PROVIDERS: ATTEND Orthopaedic Surgery
DX: M79.661 Pain in right lower leg (principal)

== ENCOUNTER → 2023-06-25 | Outpatient (CLI) | payer OTHER, MEDICAID ==
[~2023-06-25] MED LIST changes: +HYDR25OIN TOP; +LORA-1041; -LORA-674
== END ==
LOC: M WHC 10:33
PROVIDERS: ATTEND Internal Medicine
DX: Z12.31 Encounter for screening mammogram for malignant neoplasm of breast (principal)

== ENCOUNTER → 2023-10-22 | Outpatient (CLI) | payer OTHER, MEDICAID ==
[~2023-10-22] MED LIST changes: +DOXY-440 PO; -DOXY-444 PO; +ONDA-282 PO; -ONDA4TAB6 PO
== END ==
LOC: M RAD 14:08
PROVIDERS: ATTEND Nurse Practitioner Family
DX: M79.605 Pain in left leg (principal); R60.9 Edema, unspecified; Z86.718 Personal history of other venous thrombosis and embolism

== ENCOUNTER 2024-02-13 12:54 | Emergency (ER) | payer OTHER, MEDICAID ==
[~2024-02-13] VITALS: Ht 149.9 cm; Wt 77.3 kg
[2024-02-13 14:56] LABS: BASO % 0.8 % (0.0-1.0); EOS # 0.2 10^3/uL (0.0-0.5); HEMATOCRIT 46.1 % (36.0-47.0); HEMOGLOBIN 15.1 g/dl (12.0-15.5); LYMPH # 1.1 10^3/uL (1.5-5.0); LYMPH % 21.3 % (24.0-44.0); MEAN CORPUSCULAR HEMOGLOBIN 32.1 pg (27.0-33.0); MEAN CORPUSCULAR HGB CONC 32.8 g/dl (32.0-36.5); MEAN CORPUSCULAR VOLUME 97.9 fl (80.0-96.0); MONO # 0.4 10^3/uL (0.0-0.8); MONO % 7.9 % (2.0-8.0); NEUTROPHILS # 3.3 10^3/uL (1.5-8.5); NEUTROPHILS % 65.8 % (36.0-66.0); PLATELET COUNT, AUTOMATED 107 10^3/uL (150-450); RED BLOOD COUNT 4.71 10^6/uL (4.00-5.40); WHITE BLOOD COUNT 5.1 10^3/uL (4.0-10.0)
[2024-02-13] MEDS: FAMOTIDINE 20MG/2ML VIAL IVP ONE (15:00)
[2024-02-13] MEDS: diphenhydrAMINE 50MG/ML VIAL IV ONE (15:01)
[2024-02-13] MEDS: methylPREDNISolone 125MG 2ML VIAL IV ONE (15:03)
[2024-02-13 16:31] LABS: BLOOD UREA NITROGEN 19 MG/DL (9-23); CALCIUM LEVEL 9.4 MG/DL (8.3-10.6); CARBON DIOXIDE LEVEL 28 MMOL/L (20-31); CHLORIDE LEVEL 107 MMOL/L (98-107); CREATININE FOR GFR 0.94 MG/DL (0.55-1.30); GLOMERULAR FILTRATION RATE > 60.0 (>32); GLUCOSE, FASTING 107 MG/DL (74-106); POTASSIUM SERUM 4.2 MMOL/L (3.5-5.1); SODIUM LEVEL 142 MMOL/L (136-145)
[2024-02-13 17:00] VITALS: BP 153/70; TEMP 98.6; O2SAT 96
== END 2024-02-13 17:14 | disposition home or self-care (01) ==
LOC: M ED 12:54 → EDBD 12:54 → M ED 17:14
DX: T78.40XA Allergy, unspecified, initial encounter (principal); E11.9 Type 2 diabetes mellitus without complications; I10 Essential (primary) hypertension; E78.5 Hyperlipidemia, unspecified; N18.9 Chronic kidney disease, unspecified; K21.9 Gastro-esophageal reflux disease without esophagitis; F41.9 Anxiety disorder, unspecified; F32.A Depression, unspecified; G47.30 Sleep apnea, unspecified; Z87.442 Personal history of urinary calculi; Z91.041 Radiographic dye allergy status; Z91.013 Allergy to seafood; Z79.82 Long term (current) use of aspirin; Z79.4 Long term (current) use of insulin; Z79.899 Other long term (current) drug therapy
CPT/HCPCS: 36415; 80048; 85025; 93041; 94760; 96374; 96375; 99284; J1200; J2919

== ENCOUNTER 2024-07-13 11:46 | Emergency (ER) | payer OTHER, MEDICAID ==
[~2024-07-13 11:46] MED LIST changes: -NYST-13; +NYST0.1C
[2024-07-13] MEDS ORDERED: DOXY-442 PO (12:48)
[2024-07-13 13:10] LABS: BASO # 0.1 10^3/uL (0.0-0.2); BASO % 0.7 % (0.0-1.0); EOS # 0.3 10^3/uL (0.0-0.5); EOS % 4.2 % (0.0-3.0); HEMATOCRIT 43.8 % (36.0-47.0); HEMOGLOBIN 14.2 g/dl (12.0-15.5); LYMPH # 1.2 10^3/uL (1.5-5.0); LYMPH % 15.8 % (24.0-44.0); MEAN CORPUSCULAR HGB CONC 32.4 g/dl (32.0-36.5); MEAN CORPUSCULAR VOLUME 98.6 fl (80.0-96.0); MONO # 0.5 10^3/uL (0.0-0.8); MONO % 6.1 % (2.0-8.0); NEUTROPHILS # 5.6 10^3/uL (1.5-8.5); NEUTROPHILS % 72.7 % (36.0-66.0); PLATELET COUNT, AUTOMATED 138 10^3/uL (150-450); RED BLOOD COUNT 4.44 10^6/uL (4.00-5.40); WHITE BLOOD COUNT 7.7 10^3/uL (4.0-10.0)
[2024-07-13 13:32] LABS: ALBUMIN 3.4 G/DL (3.2-5.2); BILIRUBIN,TOTAL 0.6 MG/DL (0.3-1.2); CALCIUM LEVEL 9.3 MG/DL (8.3-10.6); CREATININE FOR GFR 1.03 MG/DL (0.55-1.30); POTASSIUM SERUM 4.1 MMOL/L (3.5-5.1); TOTAL PROTEIN 6.7 G/DL (5.7-8.2)
[2024-07-13 14:00] VITALS: BP 162/82; TEMP 97.6; O2SAT 98
== END 2024-07-13 14:30 | disposition home or self-care (01) ==
LOC: M ED 11:46 → EDBD 11:46 → M ED 14:30
DX: L03.116 Cellulitis of left lower limb (principal); R22.43 Localized swelling, mass and lump, lower limb, bilateral; E11.9 Type 2 diabetes mellitus without complications; I12.9 Hypertensive chronic kidney disease with stage 1 through stage 4 chronic kidney disease, or unspecified chronic kidney disease; E78.5 Hyperlipidemia, unspecified; G47.33 Obstructive sleep apnea (adult) (pediatric); F32.A Depression, unspecified; F41.9 Anxiety disorder, unspecified; Z91.041 Radiographic dye allergy status; Z91.013 Allergy to seafood; Z79.1 Long term (current) use of non-steroidal anti-inflammatories (NSAID); Z79.2 Long term (current) use of antibiotics; Z79.84 Long term (current) use of oral hypoglycemic drugs; Z79.899 Other long term (current) drug therapy

== ENCOUNTER → 2025-02-03 | Outpatient (CLI) | payer MEDICARE, MEDICAID ==
[~2025-02-03] MED LIST changes: +ASPI81TA26 PO; +CEFD1CAP9 PO; +CEFD300C PO; +DOXY-442 PO; +NYST10006 TOP; +PRES10CA2 PO
== END ==
LOC: M WHC 08:04
PROVIDERS: ATTEND Internal Medicine
DX: Z12.31 Encounter for screening mammogram for malignant neoplasm of breast (principal)

== ENCOUNTER → 2025-02-07 | Outpatient (CLI) | payer MEDICARE, MEDICAID | LOC: M SOG 08:32 | PROVIDERS: ATTEND Orthopaedic Surgery | DX: M17.0 Bilateral primary osteoarthritis of knee (principal) ==

== ENCOUNTER 2025-02-24 11:52 | Emergency (ER) | payer MEDICARE, MEDICAID ==
[~2025-02-24] VITALS: Ht 152.4 cm; Wt 81.8 kg
[2025-02-24 12:48] LABS: BASO # 0.0 10^3/uL (0.0-0.2); BASO % 0.4 % (0.0-1.0); EOS # 0.3 10^3/uL (0.0-0.5); EOS % 3.5 % (0.0-3.0); LYMPH # 1.3 10^3/uL (1.5-5.0); LYMPH % 16.3 % (24.0-44.0); MONO # 0.5 10^3/uL (0.0-0.8); MONO % 5.9 % (2.0-8.0); NEUTROPHILS # 5.7 10^3/uL (1.5-8.5); NEUTROPHILS % 73.4 % (36.0-66.0); PLATELET COUNT, AUTOMATED 142 10^3/uL (150-450)
[2025-02-24 14:05] LABS: ALT/SGPT 25.0 U/L (7.0-40); AST/SGOT 48.0 U/L (<34); CALCIUM LEVEL 8.5 MG/DL (8.3-10.6); CARBON DIOXIDE LEVEL 26.0 MMOL/L (20-31); CHLORIDE LEVEL 110.0 MMOL/L (98-107); CREATININE FOR GFR 0.92 MG/DL (0.55-1.30); GLOMERULAR FILTRATION RATE 60.3 (>32); POTASSIUM SERUM 4.9 MMOL/L (3.5-5.1); SODIUM LEVEL 147.0 MMOL/L (136-145)
[2025-02-24 15:25] VITALS: TEMP 98.4
[2025-02-24 15:45] VITALS: BP 128/58; O2SAT 98
== END 2025-02-24 16:15 | disposition home or self-care (01) ==
LOC: M ED 11:52
DX: R60.0 Localized edema (principal); R07.81 Pleurodynia; I48.91 Unspecified atrial fibrillation; W01.198A Fall on same level from slipping, tripping and stumbling with subsequent striking against other object, initial encounter; I70.0 Atherosclerosis of aorta; M19.011 Primary osteoarthritis, right shoulder; M19.012 Primary osteoarthritis, left shoulder; E11.9 Type 2 diabetes mellitus without complications; I10 Essential (primary) hypertension; E78.5 Hyperlipidemia, unspecified; K21.9 Gastro-esophageal reflux disease without esophagitis; Z91.041 Radiographic dye allergy status; Z88.2 Allergy status to sulfonamides; Z91.013 Allergy to seafood; Z88.8 Allergy status to other drugs, medicaments and biological substances; Z79.82 Long term (current) use of aspirin; Z79.899 Other long term (current) drug therapy; Z86.718 Personal history of other venous thrombosis and embolism; Y99.9 Unspecified external cause status